=== PATIENT | male | born 1940 | race African-American/Black ===

== ENCOUNTER 2018-08-01 00:36 | Emergency (ER) | payer OTHER, MEDICARE ==
[~2018-08-01] VITALS: Ht 177.8 cm; Wt 113.0 kg
[~2018-08-01 00:36] MED LIST: ALOG25TA2 PO; AMI2 PO; ATOR40TA70 PO; COR3 PO; DAPA5TAB PO; LEVVL SQ; LISI2.5T47 PO; METF-415 PO; MONT10TA21 PO; RIVA10TA PO; SPIR25TA6 PO; TAMS0.4C31 PO
[2018-08-01] MEDS ORDERED: IPRATROPIUM BROMIDE (0.02%) 0.5MG/2.5ML NEB HHN STA (01:28)
[2018-08-01] MEDS ORDERED: ALBUTEROL (0.083%) 2.5MG/3ML NEB HHN STA (01:28)
[2018-08-01] MEDS ORDERED: ASPIRIN 81MG TABLET PO ONE (01:30)
[2018-08-01 01:49] LABS: BASOPHILS % 0.3 % (0.0-2.0); EOSINOPHILS % 0.4 % (0.0-5.0); HEMATOCRIT. 43.3 % (42.0-52.0); HEMOGLOBIN. 14.5 g/dL (14.0-18.0); LYMPHOCYTES % 23.3 % (20.0-50.0); MEAN CORPUSCULAR HEMOGLOBIN 31.4 pg (28.0-32.0); MEAN CORPUSCULAR VOLUME 93.6 fL (80.0-94.0); MEAN PLATELET VOLUME 8.2 fl (7.4-10.4); MONOCYTES % 10.7 % (2.0-8.0); NEUTROPHILS % 65.3 % (40.0-76.0); PLATELET 190 x1000/uL (130-400); RED BLOOD CELL COUNT 4.63 mill/uL (4.7-6.1); RED CELL DISTRIBUTION WIDTH 14.3 % (11.6-14.6)
[2018-08-01 01:54] LABS: CHLORIDE 103 mEq/L (98-107)
[2018-08-01] MEDS ORDERED: DEXTROSE 50% WATER 50ML SYRINGE IV ONE (03:30)
[2018-08-01 05:41] VITALS: BP 132/82
== END 2018-08-01 05:43 | disposition home or self-care (01) ==
LOC: ER 00:36 → CANBEDREQ 06:31
DX: R06.02 Shortness of breath (principal); R07.89 Other chest pain; E11.9 Type 2 diabetes mellitus without complications; E78.00 Pure hypercholesterolemia, unspecified; I10 Essential (primary) hypertension; Z87.891 Personal history of nicotine dependence; Z98.890 Other specified postprocedural states; Z79.899 Other long term (current) drug therapy; Z79.4 Long term (current) use of insulin
CPT/HCPCS: 36415; 71045; 83880; 84484; 93005; 94640; 99284; J7611

== ENCOUNTER 2018-08-23 19:43 | Emergency (ER) | payer OTHER, MEDICARE ==
[~2018-08-23] VITALS: Ht 177.8 cm; Wt 119.0 kg
[2018-08-23] MEDS ORDERED: METHYLPREDNISOLONE SOD SUCC 125 MG/2 ML VIAL IV STA (22:38)
[2018-08-23] MEDS ORDERED: IPRATROPIUM BROMIDE (0.02%) 0.5MG/2.5ML NEB HHN STA (22:38)
[2018-08-23] MEDS ORDERED: ALBUTEROL (0.083%) 2.5MG/3ML NEB HHN STA (22:38)
[2018-08-23] MEDS ORDERED: AZITHROMYCIN 500 MG TABLET PO ONE (22:45)
[2018-08-23 23:01] LABS: BG BASE EXCESS -3.1 mmol/L (-2.0-2.0); BG DEOXYHEMOGLOBIN 8.3 % (0.0-5.0); BG FRACTION INSPIRED OXYGEN 28; BG HCO3 ACT 22.2 mmol/L (22.0-26.0); BG METHEMOGLOBIN 0.2 % (0.0-1.5); BG OXYGEN SATURATION 91.6 % (92.0-98.5); BG OXYHEMOGLOBIN 90.5 % (94.0-97.0); BG PCO2 40.6 mmHg (35.0-45.0); BG PH 7.356 (7.350-7.450); BG PO2 68.7 mmHg (75.0-100.0); BG SAMPLE SITE RIGHT RADIAL; BG TOTAL HEMOGLOBIN 15.1 g/dL (12.0-18.0); BG VENT MODE NASAL CANNULA
[2018-08-23 23:10] LABS: BASOPHILS % 0.3 % (0.0-2.0); EOSINOPHILS % 0.6 % (0.0-5.0); HEMATOCRIT. 44.5 % (42.0-52.0); HEMOGLOBIN. 14.7 g/dL (14.0-18.0); LYMPHOCYTES % 23.7 % (20.0-50.0); MEAN CORPUSCULAR HEMOGLOBIN 31.8 pg (28.0-32.0); MEAN CORPUSCULAR VOLUME 96.3 fL (80.0-94.0); MEAN PLATELET VOLUME 8.8 fl (7.4-10.4); MONOCYTES % 9.9 % (2.0-8.0); NEUTROPHILS % 65.5 % (40.0-76.0); PLATELET 155 x1000/uL (130-400); RED BLOOD CELL COUNT 4.62 mill/uL (4.7-6.1); RED CELL DISTRIBUTION WIDTH 14.6 % (11.6-14.6)
[2018-08-23 23:13] LABS: CHLORIDE 108 mEq/L (98-107)
[2018-08-23 23:16] LABS: PROTHROMBIN TIME 10.3 sec (9.1-11.1)
[2018-08-24] MEDS ORDERED: FUROSEMIDE 40MG/4ML VIAL IVP ONE (02:15)
[2018-08-24] MEDS ORDERED: CEFTRIAXONE 1 G PREMIX 50 ML IV ONE (02:15)
[2018-08-24 05:16] VITALS: BP 138/81
== END 2018-08-24 05:15 | disposition short-term general hospital (02) ==
LOC: ER 19:43 → CANBEDREQ 08-24 07:03
DX: I11.0 Hypertensive heart disease with heart failure (principal); I50.9 Heart failure, unspecified; E78.00 Pure hypercholesterolemia, unspecified; E11.9 Type 2 diabetes mellitus without complications; Z87.891 Personal history of nicotine dependence; Z79.899 Other long term (current) drug therapy; Z79.4 Long term (current) use of insulin
CPT/HCPCS: 36415; 36600; 71045; 80053; 82375; 82805; 83880; 84484; 85025; 85610; 87040; 87804; 93005; 96365; 96375; 99285; J0696; J1940; J2930

== ENCOUNTER 2020-08-07 10:32 | Inpatient (IN) | payer BC, MEDICARE, OTHER ==
[~2020-08-07] VITALS: Ht 175.3 cm; Wt 109.8 kg
[2020-08-07] MEDS ORDERED: FUROSEMIDE 40MG/4ML VIAL IV ONE (11:15)
[2020-08-07 11:43] LABS: BASOPHILS % 0.8 % (0.0-2.0); EOSINOPHILS % 0.7 % (0.0-5.0); HEMATOCRIT. 37.4 % (42.0-52.0); HEMOGLOBIN. 11.4 g/dL (14.0-18.0); LYMPHOCYTES % 11.2 % (20.0-50.0); MEAN CORPUSCULAR HEMOGLOBIN 23.7 pg (28.0-32.0); MEAN CORPUSCULAR VOLUME 77.7 fL (80.0-94.0); MEAN PLATELET VOLUME 7.3 fl (7.4-10.4); MONOCYTES % 14.5 % (2.0-8.0); NEUTROPHILS % 72.8 % (40.0-76.0); PLATELET 200 x1000/uL (130-400); RED BLOOD CELL COUNT 4.81 mill/uL (4.7-6.1); RED CELL DISTRIBUTION WIDTH 19.2 % (11.6-14.6)
[2020-08-07 11:47] LABS: CHLORIDE 102 mEq/L (98-107)
[2020-08-07 11:50] LABS: INR 1.2; PROTHROMBIN TIME 12.5 sec (9.6-11.0)
[2020-08-07] MEDS ORDERED: CLONIDINE 0.1MG TABLET PO PRN (13:45)
[2020-08-07] MEDS: POTASSIUM CHLORIDE 20MEQ TABLET SR PO SCH (13:45)
[2020-08-07] MEDS ORDERED: MAGNESIUM/ALUMINUM HYDROXIDE/SIMETHICONE 30ML UDC PO PRN (13:45)
[2020-08-07] MEDS ORDERED: HYDROCODONE/ACETAMINOPHEN 5/325MG TABLET PO PRN (13:45)
[2020-08-07] MEDS: LISINOPRIL 2.5MG TABLET PO SCH (13:45)
[2020-08-07] MEDS ORDERED: DOCUSATE SODIUM 100MG CAPSULE PO PRN (13:45)
[2020-08-07] MEDS ORDERED: ACETAMINOPHEN 325MG TABLET PO PRN (13:45)
[2020-08-07] MEDS: AMIODARONE HCL 200 MG TABLET PO SCH (13:45)
[2020-08-07] MEDS: SPIRONOLACTONE 25MG TABLET PO SCH (14:00)
[2020-08-07] MEDS: CARVEDILOL 3.125 MG TABLET PO SCH ×2 (15:16→21:00)
[2020-08-07] MEDS: TAMSULOSIN HCL 0.4MG SR CAPSULE PO SCH (15:16)
[2020-08-07] MEDS: BLOOD SUGAR DIAGNOSTIC STRIP TEST SCH ×2 (16:37→21:18)
[2020-08-07] MEDS: MONTELUKAST SODIUM 10MG TABLET PO SCH (16:50)
[2020-08-07] MEDS: FUROSEMIDE 40MG/4ML VIAL IV SCH (16:50)
[2020-08-07] MEDS ORDERED: RIVAROXABAN 15 MG TABLET PO SCH (17:00)
[2020-08-07] MEDS: INSULIN LISPRO 100 UNITS/ML SUBCUT SCH ×2 (18:49→21:00)
[2020-08-07] MEDS ORDERED: INSULIN GLARGINE UD 100 UNITS/ML SYR SUBCUT SCH (22:00)
[2020-08-07 22:40] VITALS: BP 107/73
[2020-08-07 22:50] VITALS: BP 107/73
[2020-08-08 04:15] VITALS: BP 118/77
[2020-08-08] MEDS: FUROSEMIDE 40MG/4ML VIAL IV SCH ×2 (06:25→17:53)
[2020-08-08] MEDS: GUAIFENESIN 200MG/10ML SUGAR FREE UDC PO PRN (06:25)
[2020-08-08] MEDS: BLOOD SUGAR DIAGNOSTIC STRIP TEST SCH ×4 (07:15→21:58)
[2020-08-08] MEDS: INSULIN LISPRO 100 UNITS/ML SUBCUT SCH ×4 (07:15→21:58)
[2020-08-08 08:00] VITALS: BP 108/66
[2020-08-08 08:24] LABS: HEMATOCRIT. 36.8 % (42.0-52.0); HEMOGLOBIN. 11.2 g/dL (14.0-18.0); MEAN CORPUSCULAR HEMOGLOBIN 23.7 pg (28.0-32.0); MEAN PLATELET VOLUME 7.5 fl (7.4-10.4); PLATELET 191 x1000/uL (130-400); RED BLOOD CELL COUNT 4.71 mill/uL (4.7-6.1); RED CELL DISTRIBUTION WIDTH 19.1 % (11.6-14.6)
[2020-08-08 08:30] LABS: CHLORIDE 105 mEq/L (98-107)
[2020-08-08 08:39] LABS: LDL CHOLESTEROL 45 mg/dL (5-100)
[2020-08-08 08:40] LABS: HDL CHOLESTEROL 42 mg/dL (40-59)
[2020-08-08] MEDS: LISINOPRIL 2.5MG TABLET PO SCH (09:00)
[2020-08-08] MEDS: CARVEDILOL 3.125 MG TABLET PO SCH ×2 (09:00→21:56)
[2020-08-08] MEDS: POTASSIUM CHLORIDE 20MEQ TABLET SR PO SCH (10:45)
[2020-08-08] MEDS: TAMSULOSIN HCL 0.4MG SR CAPSULE PO SCH (10:46)
[2020-08-08] MEDS: SPIRONOLACTONE 25MG TABLET PO SCH (10:46)
[2020-08-08] MEDS: AMIODARONE HCL 200 MG TABLET PO SCH (10:46)
[2020-08-08 12:00] VITALS: BP 118/65
[2020-08-08] MEDS: ASPIRIN 81MG EC TABLET PO SCH (12:40)
[2020-08-08 14:14] LABS: PLATELET ESTIMATE NORMAL
[2020-08-08 16:00] VITALS: BP 121/79
[2020-08-08] MEDS: MONTELUKAST SODIUM 10MG TABLET PO SCH (17:53)
[2020-08-08 20:00] VITALS: BP 123/69
[2020-08-08] MEDS ORDERED: ENOXAPARIN 100MG/ML SYR SUBCUT NR (21:00)
[2020-08-08] MEDS ORDERED: ENOXAPARIN 100MG/ML SYR SUBCUT SCH (21:00)
[2020-08-08] MEDS ORDERED: INSULIN GLARGINE UD 100 UNITS/ML SYR SUBCUT NR (23:30)
[2020-08-08 23:34] VITALS: BP 95/22
[2020-08-09 04:00] VITALS: BP 113/77
[2020-08-09] MEDS: INSULIN LISPRO 100 UNITS/ML SUBCUT SCH ×4 (06:51→21:19)
[2020-08-09] MEDS: BLOOD SUGAR DIAGNOSTIC STRIP TEST SCH ×4 (06:52→20:56)
[2020-08-09 07:43] LABS: BASOPHILS % 0.4 % (0.0-2.0); EOSINOPHILS % 0.5 % (0.0-5.0); HEMATOCRIT. 37.3 % (42.0-52.0); HEMOGLOBIN. 11.5 g/dL (14.0-18.0); LYMPHOCYTES % 12.5 % (20.0-50.0); MEAN CORPUSCULAR HEMOGLOBIN 23.9 pg (28.0-32.0); MEAN CORPUSCULAR VOLUME 77.6 fL (80.0-94.0); MEAN PLATELET VOLUME 7.6 fl (7.4-10.4); MONOCYTES % 14.9 % (2.0-8.0); NEUTROPHILS % 71.7 % (40.0-76.0); PLATELET 205 x1000/uL (130-400); RED BLOOD CELL COUNT 4.81 mill/uL (4.7-6.1); RED CELL DISTRIBUTION WIDTH 19.4 % (11.6-14.6)
[2020-08-09 07:56] LABS: CHLORIDE 104 mEq/L (98-107)
[2020-08-09 08:00] VITALS: BP 112/69
[2020-08-09] MEDS: POTASSIUM CHLORIDE 20MEQ TABLET SR PO SCH (11:56)
[2020-08-09] MEDS: FUROSEMIDE 40MG/4ML VIAL IV SCH ×2 (11:56→17:38)
[2020-08-09] MEDS: TAMSULOSIN HCL 0.4MG SR CAPSULE PO SCH (11:56)
[2020-08-09] MEDS: LISINOPRIL 2.5MG TABLET PO SCH (11:56)
[2020-08-09] MEDS: ASPIRIN 81MG EC TABLET PO SCH (11:57)
[2020-08-09] MEDS: CARVEDILOL 3.125 MG TABLET PO SCH ×2 (11:57→21:18)
[2020-08-09] MEDS: SPIRONOLACTONE 25MG TABLET PO SCH (11:57)
[2020-08-09 12:00] VITALS: BP 125/82
[2020-08-09] MEDS ORDERED: ENOXAPARIN 100MG/ML SYR SUBCUT NR (12:15)
[2020-08-09] MEDS: MONTELUKAST SODIUM 10MG TABLET PO SCH (17:38)
[2020-08-09 18:00] VITALS: BP 108/62
[2020-08-09 20:00] VITALS: BP 110/72
[2020-08-09 21:07] LABS: CLARITY URINE CLOUDY (CLEAR); COLOR URINE YELLOW (YELLOW); KETONES URINE TRACE (NEGATIVE); LEUKOCYTE ESTERASE URINE 2+ (NEGATIVE); NITRITE URINE NEGATIVE (NEGATIVE); OCCULT BLOOD URINE 3+ (NEGATIVE); PROTEIN URINE 2+ (NEGATIVE); SPECIFIC GRAVITY URINE 1.016 (1.005-1.030)
[2020-08-09] MEDS: METHYLPREDNISOLONE SOD SUCC 40 MG/ML VIAL IV SCH (21:32)
[2020-08-09] MEDS ORDERED: INSULIN GLARGINE UD 100 UNITS/ML SYR SUBCUT SCH (22:00)
[2020-08-10] VITALS: BP 100/59
[2020-08-10 04:00] VITALS: BP 109/71
[2020-08-10] MEDS: IPRATROPIUM/ALBUTEROL 0.5-3(2.5)MG/3ML NEB HHN SCH ×3 (04:01→15:22)
[2020-08-10] MEDS: BLOOD SUGAR DIAGNOSTIC STRIP TEST SCH ×5 (06:24→21:01)
[2020-08-10] MEDS: INSULIN LISPRO 100 UNITS/ML SUBCUT SCH ×5 (06:28→21:01)
[2020-08-10] MEDS: METHYLPREDNISOLONE SOD SUCC 40 MG/ML VIAL IV SCH ×3 (06:29→22:00)
[2020-08-10 06:50] LABS: HEMATOCRIT. 38.1 % (42.0-52.0); HEMOGLOBIN. 11.9 g/dL (14.0-18.0); MEAN CORPUSCULAR HEMOGLOBIN 24.1 pg (28.0-32.0); MEAN CORPUSCULAR VOLUME 77.4 fL (80.0-94.0); MEAN PLATELET VOLUME 7.7 fl (7.4-10.4); PLATELET 211 x1000/uL (130-400); RED BLOOD CELL COUNT 4.92 mill/uL (4.7-6.1); RED CELL DISTRIBUTION WIDTH 19.5 % (11.6-14.6)
[2020-08-10 06:57] LABS: CHLORIDE 100 mEq/L (98-107)
[2020-08-10] MEDS: ENOXAPARIN 60MG/0.6ML SYR SUBCUT SCH ×2 (08:46→21:00)
[2020-08-10] MEDS: FUROSEMIDE 40MG/4ML VIAL IV SCH ×3 (08:46→16:56)
[2020-08-10] MEDS: POTASSIUM CHLORIDE 20MEQ TABLET SR PO SCH (08:51)
[2020-08-10] MEDS: ASPIRIN 81MG EC TABLET PO SCH (08:52)
[2020-08-10] MEDS: SPIRONOLACTONE 25MG TABLET PO SCH (09:00)
[2020-08-10] MEDS: TAMSULOSIN HCL 0.4MG SR CAPSULE PO SCH (09:00)
[2020-08-10] MEDS: LISINOPRIL 2.5MG TABLET PO SCH (09:00)
[2020-08-10] MEDS: CARVEDILOL 3.125 MG TABLET PO SCH ×2 (09:03→20:55)
[2020-08-10 11:02] LABS: BG BASE EXCESS 0.9 mmol/L (-2.0-2.0); BG CARBOXYHEMOGLOBIN 1.5 % (0.5-1.5); BG DEOXYHEMOGLOBIN 6.5 % (0.0-5.0); BG HCO3 ACT 27.8 mmol/L (22.0-26.0); BG METHEMOGLOBIN 0.2 % (0.0-1.5); BG OXYGEN SATURATION 93.4 % (92.0-98.5); BG OXYHEMOGLOBIN 91.8 % (94.0-97.0); BG PCO2 54.4 mmHg (35.0-45.0); BG PH 7.327 (7.350-7.450); BG PO2 77.5 mmHg (75.0-100.0); BG SAMPLE SITE RIGHT RADIAL; BG TOTAL HEMOGLOBIN 12.8 g/dL (12.0-18.0); BG VENT MODE MASK - NRB
[2020-08-10 12:00] VITALS: BP 110/72
[2020-08-10] MEDS: GUAIFENESIN 200MG/10ML SUGAR FREE UDC PO PRN (13:43)
[2020-08-10 14:20] LABS: PLATELET ESTIMATE NORMAL
[2020-08-10] MEDS: MONTELUKAST SODIUM 10MG TABLET PO SCH (16:24)
[2020-08-10] MEDS ORDERED: METOLAZONE 5MG TABLET PO NR (16:30)
[2020-08-10 20:00] VITALS: BP 104/69
[2020-08-10] MEDS ORDERED: INSULIN GLARGINE UD 100 UNITS/ML SYR SUBCUT SCH (22:00)
[2020-08-11] VITALS: BP 126/87
[2020-08-11 04:00] VITALS: BP 106/59
[2020-08-11] MEDS: IPRATROPIUM/ALBUTEROL 0.5-3(2.5)MG/3ML NEB HHN SCH ×4 (04:13→12:00)
[2020-08-11] MEDS: METHYLPREDNISOLONE SOD SUCC 40 MG/ML VIAL IV SCH ×2 (05:37→18:38)
[2020-08-11] MEDS: BLOOD SUGAR DIAGNOSTIC STRIP TEST SCH ×4 (06:19→21:00)
[2020-08-11] MEDS: INSULIN LISPRO 100 UNITS/ML SUBCUT SCH ×4 (06:19→22:13)
[2020-08-11 08:00] VITALS: BP 122/57
[2020-08-11 09:11] LABS: HEMATOCRIT. 37.4 % (42.0-52.0); HEMOGLOBIN. 11.4 g/dL (14.0-18.0); MEAN CORPUSCULAR HEMOGLOBIN 23.8 pg (28.0-32.0); MEAN PLATELET VOLUME 7.9 fl (7.4-10.4); PLATELET 225 x1000/uL (130-400); RED BLOOD CELL COUNT 4.79 mill/uL (4.7-6.1)
[2020-08-11 09:12] LABS: CHLORIDE 99 mEq/L (98-107)
[2020-08-11] MEDS: ASPIRIN 81MG EC TABLET PO SCH (09:58)
[2020-08-11] MEDS: TAMSULOSIN HCL 0.4MG SR CAPSULE PO SCH (09:58)
[2020-08-11] MEDS: FUROSEMIDE 40MG/4ML VIAL IV SCH ×2 (09:59→13:00)
[2020-08-11] MEDS: POTASSIUM CHLORIDE 20MEQ TABLET SR PO SCH (09:59)
[2020-08-11] MEDS: CARVEDILOL 3.125 MG TABLET PO SCH ×2 (09:59→21:00)
[2020-08-11] MEDS: ENOXAPARIN 60MG/0.6ML SYR SUBCUT SCH ×2 (09:59→22:12)
[2020-08-11] MEDS: SPIRONOLACTONE 25MG TABLET PO SCH (10:01)
[2020-08-11] MEDS: FUROSEMIDE 100MG/10ML VIAL IV SCH (18:39)
[2020-08-11] MEDS: MONTELUKAST SODIUM 10MG TABLET PO SCH (18:40)
[2020-08-11 20:00] VITALS: BP 103/77
[2020-08-11 21:45] LABS: PLATELET ESTIMATE NORMAL
[2020-08-11] MEDS ORDERED: IOHEXOL-350 100 ML BOTTLE ONE (21:55)
[2020-08-11] MEDS: INSULIN GLARGINE UD 100 UNITS/ML SYR SUBCUT SCH (22:42)
[2020-08-12] VITALS (14 sets, daily range): BP systolic 89–119; BP diastolic 59–82
[2020-08-12] MEDS: FUROSEMIDE 100MG/10ML VIAL IV SCH ×3 (01:30→22:37)
[2020-08-12] MEDS: METHYLPREDNISOLONE SOD SUCC 40 MG/ML VIAL IV SCH ×2 (05:16→18:15)
[2020-08-12] MEDS: BLOOD SUGAR DIAGNOSTIC STRIP TEST SCH ×4 (07:30→21:14)
[2020-08-12] MEDS: INSULIN LISPRO 100 UNITS/ML SUBCUT SCH ×4 (08:00→22:35)
[2020-08-12] MEDS: IPRATROPIUM/ALBUTEROL 0.5-3(2.5)MG/3ML NEB HHN SCH ×2 (08:18→20:42)
[2020-08-12 08:44] LABS: HEMATOCRIT. 36.5 % (42.0-52.0); HEMOGLOBIN. 11.2 g/dL (14.0-18.0); MEAN CORPUSCULAR HEMOGLOBIN 23.8 pg (28.0-32.0); MEAN CORPUSCULAR VOLUME 77.3 fL (80.0-94.0); MEAN PLATELET VOLUME 7.8 fl (7.4-10.4); PLATELET 218 x1000/uL (130-400); RED BLOOD CELL COUNT 4.72 mill/uL (4.7-6.1); RED CELL DISTRIBUTION WIDTH 19.5 % (11.6-14.6)
[2020-08-12] MEDS: CARVEDILOL 3.125 MG TABLET PO SCH ×2 (09:18→21:13)
[2020-08-12] MEDS: TAMSULOSIN HCL 0.4MG SR CAPSULE PO SCH (09:18)
[2020-08-12] MEDS: POTASSIUM CHLORIDE 20MEQ TABLET SR PO SCH (09:18)
[2020-08-12] MEDS: ENOXAPARIN 60MG/0.6ML SYR SUBCUT SCH ×2 (09:18→21:14)
[2020-08-12] MEDS: ASPIRIN 81MG EC TABLET PO SCH (09:18)
[2020-08-12 09:29] LABS: CHLORIDE 97 mEq/L (98-107)
[2020-08-12] MEDS: MONTELUKAST SODIUM 10MG TABLET PO SCH (18:36)
[2020-08-12] MEDS: INSULIN GLARGINE UD 100 UNITS/ML SYR SUBCUT SCH (22:35)
[2020-08-12 22:54] LABS: PLATELET ESTIMATE NORMAL
[2020-08-13] VITALS (8 sets, daily range): BP systolic 105–113; BP diastolic 66–80
[2020-08-13] MEDS: GUAIFENESIN 200MG/10ML SUGAR FREE UDC PO PRN (03:24)
[2020-08-13] MEDS: FUROSEMIDE 100MG/10ML VIAL IV SCH ×3 (05:13→22:51)
[2020-08-13] MEDS: METHYLPREDNISOLONE SOD SUCC 40 MG/ML VIAL IV SCH (05:14)
[2020-08-13 07:14] LABS: HEMATOCRIT. 37.2 % (42.0-52.0); HEMOGLOBIN. 11.4 g/dL (14.0-18.0); MEAN CORPUSCULAR HEMOGLOBIN 23.7 pg (28.0-32.0); MEAN CORPUSCULAR VOLUME 77.2 fL (80.0-94.0); PLATELET 189 x1000/uL (130-400); RED BLOOD CELL COUNT 4.82 mill/uL (4.7-6.1); RED CELL DISTRIBUTION WIDTH 19.6 % (11.6-14.6)
[2020-08-13 07:22] LABS: CHLORIDE 97 mEq/L (98-107)
[2020-08-13] MEDS: BLOOD SUGAR DIAGNOSTIC STRIP TEST SCH ×4 (07:30→21:00)
[2020-08-13] MEDS: LORAZEPAM 2MG/ML CPJ IV PRN (08:11)
[2020-08-13] MEDS: INSULIN LISPRO 100 UNITS/ML SUBCUT SCH ×4 (08:54→21:00)
[2020-08-13] MEDS: TAMSULOSIN HCL 0.4MG SR CAPSULE PO SCH (09:46)
[2020-08-13] MEDS: ASPIRIN 81MG EC TABLET PO SCH (09:46)
[2020-08-13] MEDS: POTASSIUM CHLORIDE 20MEQ TABLET SR PO SCH (09:46)
[2020-08-13] MEDS: ENOXAPARIN 60MG/0.6ML SYR SUBCUT SCH ×2 (09:46→22:51)
[2020-08-13] MEDS: CARVEDILOL 3.125 MG TABLET PO SCH ×2 (09:50→21:00)
[2020-08-13] MEDS: IPRATROPIUM/ALBUTEROL 0.5-3(2.5)MG/3ML NEB HHN SCH ×2 (10:37→16:20)
[2020-08-13 12:00] LABS: PLATELET ESTIMATE NORMAL
[2020-08-13] MEDS ORDERED: METOLAZONE 2.5MG TABLET PO NR (13:15)
[2020-08-13] MEDS: SPIRONOLACTONE 25MG TABLET PO SCH (13:24)
[2020-08-13 17:08] LABS: BG BASE EXCESS 12.8 mmol/L (-2.0-2.0); BG CARBOXYHEMOGLOBIN 0.9 % (0.5-1.5); BG DEOXYHEMOGLOBIN 6.4 % (0.0-5.0); BG FRACTION INSPIRED OXYGEN 99.9; BG HCO3 ACT 41.3 mmol/L (22.0-26.0); BG METHEMOGLOBIN 0.3 % (0.0-1.5); BG OXYGEN SATURATION 93.5 % (92.0-98.5); BG OXYHEMOGLOBIN 92.4 % (94.0-97.0); BG PCO2 76.1 mmHg (35.0-45.0); BG PH 7.352 (7.350-7.450); BG PO2 73.3 mmHg (75.0-100.0); BG SAMPLE SITE RIGHT RADIAL; BG TOTAL HEMOGLOBIN 11.7 g/dL (12.0-18.0); BG VENT MODE MASK - NRB
[2020-08-13] MEDS: INSULIN GLARGINE UD 100 UNITS/ML SYR SUBCUT SCH (22:52)
[2020-08-14] VITALS (7 sets, daily range): BP systolic 102–121; BP diastolic 49–70
[2020-08-14] MEDS: LORAZEPAM 2MG/ML CPJ IV PRN ×4 (01:32→21:33)
[2020-08-14] MEDS: FUROSEMIDE 100MG/10ML VIAL IV SCH ×3 (06:10→21:46)
[2020-08-14] MEDS: BLOOD SUGAR DIAGNOSTIC STRIP TEST SCH ×4 (07:30→20:51)
[2020-08-14] MEDS: INSULIN LISPRO 100 UNITS/ML SUBCUT SCH ×4 (08:00→20:54)
[2020-08-14] MEDS: DEXTROSE 50% WATER 50ML SYRINGE IV PRN ×2 (08:19→17:44)
[2020-08-14] MEDS: IPRATROPIUM/ALBUTEROL 0.5-3(2.5)MG/3ML NEB HHN SCH ×3 (08:53→22:31)
[2020-08-14] MEDS: ASPIRIN 81MG EC TABLET PO SCH (09:17)
[2020-08-14] MEDS: SPIRONOLACTONE 25MG TABLET PO SCH (09:17)
[2020-08-14] MEDS: TAMSULOSIN HCL 0.4MG SR CAPSULE PO SCH (09:18)
[2020-08-14] MEDS: CARVEDILOL 3.125 MG TABLET PO SCH ×2 (09:19→20:51)
[2020-08-14] MEDS: ENOXAPARIN 60MG/0.6ML SYR SUBCUT SCH ×2 (09:20→20:49)
[2020-08-14] MEDS ORDERED: ACETAZOLAMIDE 250MG TABLET PO NR (11:00)
[2020-08-14 11:39] LABS: HEMATOCRIT. 36.2 % (42.0-52.0); MEAN CORPUSCULAR HEMOGLOBIN 23.6 pg (28.0-32.0); MEAN CORPUSCULAR VOLUME 77.2 fL (80.0-94.0); MEAN PLATELET VOLUME 7.6 fl (7.4-10.4); PLATELET 183 x1000/uL (130-400); RED BLOOD CELL COUNT 4.69 mill/uL (4.7-6.1); RED CELL DISTRIBUTION WIDTH 19.3 % (11.6-14.6)
[2020-08-14 11:50] LABS: CHLORIDE 94 mEq/L (98-107)
[2020-08-14] MEDS ORDERED: KCL 20MEQ/100ML PREMIX 100 ML IV NR (12:00)
[2020-08-14] MEDS ORDERED: METOLAZONE 2.5MG TABLET PO NR (12:00)
[2020-08-14 13:00] LABS: BG BASE EXCESS 20.3 mmol/L (-2.0-2.0); BG CARBOXYHEMOGLOBIN 1.1 % (0.5-1.5); BG DEOXYHEMOGLOBIN 3.6 % (0.0-5.0); BG HCO3 ACT 49.1 mmol/L (22.0-26.0); BG METHEMOGLOBIN 0.3 % (0.0-1.5); BG OXYGEN SATURATION 96.3 % (92.0-98.5); BG PCO2 81.9 mmHg (35.0-45.0); BG PH 7.396 (7.350-7.450); BG SAMPLE SITE UAL; BG TOTAL HEMOGLOBIN 11.7 g/dL (12.0-18.0); BG VENT MODE MASK - BIPAP
[2020-08-14] MEDS: MONTELUKAST SODIUM 10MG TABLET PO SCH (16:11)
[2020-08-14 17:47] LABS: PLATELET ESTIMATE NORMAL
[2020-08-14] MEDS: INSULIN GLARGINE UD 100 UNITS/ML SYR SUBCUT SCH (22:00)
[2020-08-15] VITALS (10 sets, daily range): BP systolic 103–131; BP diastolic 54–74
[2020-08-15] MEDS: ONDANSETRON HCL 4MG/2ML INJ IV PRN (02:22)
[2020-08-15] MEDS: IPRATROPIUM/ALBUTEROL 0.5-3(2.5)MG/3ML NEB HHN SCH ×2 (02:44→21:17)
[2020-08-15] MEDS: FUROSEMIDE 100MG/10ML VIAL IV SCH (05:13)
[2020-08-15] MEDS: LORAZEPAM 2MG/ML CPJ IV PRN ×2 (06:00→20:34)
[2020-08-15 06:43] LABS: BASOPHILS % 0.1 % (0.0-2.0); EOSINOPHILS % 0.2 % (0.0-5.0); HEMATOCRIT. 35.6 % (42.0-52.0); HEMOGLOBIN. 11.1 g/dL (14.0-18.0); LYMPHOCYTES % 7.6 % (20.0-50.0); MEAN CORPUSCULAR HEMOGLOBIN 23.9 pg (28.0-32.0); MEAN CORPUSCULAR VOLUME 76.4 fL (80.0-94.0); MONOCYTES % 12.7 % (2.0-8.0); NEUTROPHILS % 79.4 % (40.0-76.0); PLATELET 171 x1000/uL (130-400); RED BLOOD CELL COUNT 4.66 mill/uL (4.7-6.1); RED CELL DISTRIBUTION WIDTH 19.2 % (11.6-14.6)
[2020-08-15 07:01] LABS: CHLORIDE 90 mEq/L (98-107)
[2020-08-15] MEDS: INSULIN LISPRO 100 UNITS/ML SUBCUT SCH ×4 (08:00→21:15)
[2020-08-15] MEDS: BLOOD SUGAR DIAGNOSTIC STRIP TEST SCH ×4 (08:13→21:12)
[2020-08-15] MEDS: CARVEDILOL 3.125 MG TABLET PO SCH ×2 (09:00→20:29)
[2020-08-15] MEDS ORDERED: POTASSIUM CHLORIDE 20MEQ/PACKET PO NR (09:00)
[2020-08-15] MEDS: ENOXAPARIN 60MG/0.6ML SYR SUBCUT SCH ×2 (09:57→20:28)
[2020-08-15] MEDS: ASPIRIN 81MG EC TABLET PO SCH (09:57)
[2020-08-15] MEDS: TAMSULOSIN HCL 0.4MG SR CAPSULE PO SCH (09:58)
[2020-08-15] MEDS: SPIRONOLACTONE 25MG TABLET PO SCH (09:59)
[2020-08-15] MEDS ORDERED: HALOPERIDOL LACTATE 5MG/ML VIAL IM PRN (11:00)
[2020-08-15] MEDS ORDERED: ACETAZOLAMIDE 250MG TABLET PO NR (12:00)
[2020-08-15 13:20] LABS: BG BASE EXCESS 23.1 mmol/L (-2.0-2.0); BG CARBOXYHEMOGLOBIN 0.8 % (0.5-1.5); BG DEOXYHEMOGLOBIN 4.3 % (0.0-5.0); BG HCO3 ACT 51.9 mmol/L (22.0-26.0); BG METHEMOGLOBIN 0.2 % (0.0-1.5); BG OXYGEN SATURATION 95.7 % (92.0-98.5); BG OXYHEMOGLOBIN 94.7 % (94.0-97.0); BG PH 7.435 (7.350-7.450); BG PO2 83.8 mmHg (75.0-100.0); BG SAMPLE SITE RIGHT RADIAL; BG TOTAL HEMOGLOBIN 12.4 g/dL (12.0-18.0); BG VENT MODE MASK - BIPAP
[2020-08-15] MEDS: MONTELUKAST SODIUM 10MG TABLET PO SCH (18:05)
[2020-08-15] MEDS: ACETAZOLAMIDE 250MG TABLET PO SCH (18:08)
[2020-08-15] MEDS: THEOPHYLLINE ANHYDROUS 80 MG/15 ML 120ML PO SCH (18:24)
[2020-08-15] MEDS: INSULIN GLARGINE UD 100 UNITS/ML SYR SUBCUT SCH (21:15)
[2020-08-16] VITALS (10 sets, daily range): BP systolic 100–125; BP diastolic 60–76
[2020-08-16] MEDS: IPRATROPIUM/ALBUTEROL 0.5-3(2.5)MG/3ML NEB HHN SCH ×4 (02:42→22:16)
[2020-08-16] MEDS: LORAZEPAM 2MG/ML CPJ IV PRN ×3 (03:35→17:54)
[2020-08-16] MEDS: THEOPHYLLINE ANHYDROUS 80 MG/15 ML 120ML PO SCH ×3 (06:00→21:03)
[2020-08-16 06:29] LABS: BASOPHILS % 0.2 % (0.0-2.0); EOSINOPHILS % 0.4 % (0.0-5.0); HEMATOCRIT. 38.3 % (42.0-52.0); HEMOGLOBIN. 11.8 g/dL (14.0-18.0); LYMPHOCYTES % 9.8 % (20.0-50.0); MEAN CORPUSCULAR HEMOGLOBIN 23.8 pg (28.0-32.0); MEAN CORPUSCULAR VOLUME 77.3 fL (80.0-94.0); MEAN PLATELET VOLUME 8.4 fl (7.4-10.4); MONOCYTES % 11.7 % (2.0-8.0); NEUTROPHILS % 77.9 % (40.0-76.0); PLATELET 169 x1000/uL (130-400); RED BLOOD CELL COUNT 4.96 mill/uL (4.7-6.1); RED CELL DISTRIBUTION WIDTH 18.4 % (11.6-14.6)
[2020-08-16 06:39] LABS: CHLORIDE 92 mEq/L (98-107)
[2020-08-16] MEDS: BLOOD SUGAR DIAGNOSTIC STRIP TEST SCH ×4 (07:30→20:53)
[2020-08-16] MEDS: INSULIN LISPRO 100 UNITS/ML SUBCUT SCH ×4 (08:00→21:04)
[2020-08-16] MEDS: ASPIRIN 81MG EC TABLET PO SCH (08:33)
[2020-08-16] MEDS: ACETAZOLAMIDE 250MG TABLET PO SCH (08:33)
[2020-08-16] MEDS: TAMSULOSIN HCL 0.4MG SR CAPSULE PO SCH (08:33)
[2020-08-16] MEDS: ENOXAPARIN 60MG/0.6ML SYR SUBCUT SCH ×2 (08:34→20:49)
[2020-08-16] MEDS: CARVEDILOL 3.125 MG TABLET PO SCH ×2 (08:34→20:58)
[2020-08-16] MEDS ORDERED: POTASSIUM CHLORIDE 20MEQ/PACKET PO SCH (09:45)
[2020-08-16 09:59] LABS: BG BASE EXCESS 12.1 mmol/L (-2.0-2.0); BG CARBOXYHEMOGLOBIN 0.9 % (0.5-1.5); BG DEOXYHEMOGLOBIN 0.4 % (0.0-5.0); BG FRACTION INSPIRED OXYGEN 100; BG HCO3 ACT 40.2 mmol/L (22.0-26.0); BG METHEMOGLOBIN 0.2 % (0.0-1.5); BG OXYGEN SATURATION 99.6 % (92.0-98.5); BG OXYHEMOGLOBIN 98.5 % (94.0-97.0); BG PH 7.371 (7.350-7.450); BG PO2 347.4 mmHg (75.0-100.0); BG SAMPLE SITE RIGHT RADIAL; BG TOTAL HEMOGLOBIN 12.4 g/dL (12.0-18.0); BG VENT MODE MASK - BIPAP
[2020-08-16] MEDS: FUROSEMIDE 40MG TABLET PO SCH (14:13)
[2020-08-16] MEDS ORDERED: TERBUTALINE SULFATE 1MG/ML VIAL SUBCUT NR (16:51)
[2020-08-16] MEDS: MONTELUKAST SODIUM 10MG TABLET PO SCH (17:54)
[2020-08-16] MEDS: ONDANSETRON HCL 4MG/2ML INJ IV PRN (20:49)
[2020-08-16] MEDS: INSULIN GLARGINE UD 100 UNITS/ML SYR SUBCUT SCH (21:04)
[2020-08-17] VITALS (12 sets, daily range): BP systolic 107–149; BP diastolic 50–108
[2020-08-17] MEDS: LORAZEPAM 2MG/ML CPJ IV PRN ×3 (01:03→19:58)
[2020-08-17] MEDS: IPRATROPIUM/ALBUTEROL 0.5-3(2.5)MG/3ML NEB HHN SCH ×5 (01:34→20:40)
[2020-08-17] MEDS: THEOPHYLLINE ANHYDROUS 80 MG/15 ML 120ML PO SCH ×3 (05:10→22:00)
[2020-08-17] MEDS: BLOOD SUGAR DIAGNOSTIC STRIP TEST SCH ×4 (07:30→20:20)
[2020-08-17] MEDS: INSULIN LISPRO 100 UNITS/ML SUBCUT SCH ×4 (08:00→20:25)
[2020-08-17] MEDS: ASPIRIN 81MG EC TABLET PO SCH (08:31)
[2020-08-17] MEDS: TAMSULOSIN HCL 0.4MG SR CAPSULE PO SCH (08:35)
[2020-08-17] MEDS: CARVEDILOL 3.125 MG TABLET PO SCH ×2 (08:35→20:15)
[2020-08-17] MEDS: ENOXAPARIN 60MG/0.6ML SYR SUBCUT SCH ×2 (08:36→20:23)
[2020-08-17] MEDS: FUROSEMIDE 40MG TABLET PO SCH (09:07)
[2020-08-17 12:43] LABS: BG BASE EXCESS 10.4 mmol/L (-2.0-2.0); BG CARBOXYHEMOGLOBIN 1.1 % (0.5-1.5); BG DEOXYHEMOGLOBIN 14.2 % (0.0-5.0); BG FRACTION INSPIRED OXYGEN 36; BG METHEMOGLOBIN 0.4 % (0.0-1.5); BG OXYGEN SATURATION 85.6 % (92.0-98.5); BG OXYHEMOGLOBIN 84.3 % (94.0-97.0); BG SAMPLE SITE RIGHT BRACHIAL; BG TOTAL HEMOGLOBIN 12.7 g/dL (12.0-18.0); BG VENT MODE NASAL CANNULA
[2020-08-17] MEDS ORDERED: PIPERACILLIN/TAZOBACTAM 2.25 G in DEXTROSE 5% WATER 50 ML IV SCH (14:00)
[2020-08-17] MEDS: PIPERACILLIN/TAZOBACTAM 3.375 G in DEXT 5% WATER 100 ML IV SCH ×2 (14:34→20:40)
[2020-08-17] MEDS: METHYLPREDNISOLONE SOD SUCC 125 MG/2 ML VIAL IV SCH ×3 (14:34→23:26)
[2020-08-17] MEDS: MONTELUKAST SODIUM 10MG TABLET PO SCH (17:00)
[2020-08-17 17:26] LABS: CHLORIDE 95 mEq/L (98-107)
[2020-08-17 17:34] LABS: HEMATOCRIT. 38.8 % (42.0-52.0); HEMOGLOBIN. 11.8 g/dL (14.0-18.0); MEAN CORPUSCULAR HEMOGLOBIN 23.4 pg (28.0-32.0); MEAN CORPUSCULAR VOLUME 76.8 fL (80.0-94.0); MEAN PLATELET VOLUME 8.5 fl (7.4-10.4); PLATELET 199 x1000/uL (130-400); RED BLOOD CELL COUNT 5.05 mill/uL (4.7-6.1); RED CELL DISTRIBUTION WIDTH 18.5 % (11.6-14.6)
[2020-08-17 18:30] LABS: PLATELET ESTIMATE NORMAL
[2020-08-17] MEDS: INSULIN GLARGINE UD 100 UNITS/ML SYR SUBCUT SCH (22:00)
[2020-08-18] VITALS (12 sets, daily range): BP systolic 105–132; BP diastolic 51–93
[2020-08-18] MEDS: IPRATROPIUM/ALBUTEROL 0.5-3(2.5)MG/3ML NEB HHN SCH ×4 (00:35→21:24)
[2020-08-18] MEDS: PIPERACILLIN/TAZOBACTAM 3.375 G in DEXT 5% WATER 100 ML IV SCH ×4 (01:12→21:24)
[2020-08-18] MEDS: LORAZEPAM 2MG/ML CPJ IV PRN ×2 (04:32→17:55)
[2020-08-18] MEDS: METHYLPREDNISOLONE SOD SUCC 125 MG/2 ML VIAL IV SCH ×3 (05:15→17:41)
[2020-08-18] MEDS: THEOPHYLLINE ANHYDROUS 80 MG/15 ML 120ML PO SCH ×3 (05:16→21:43)
[2020-08-18] MEDS: BLOOD SUGAR DIAGNOSTIC STRIP TEST SCH ×4 (07:51→21:35)
[2020-08-18] MEDS: ASPIRIN 81MG EC TABLET PO SCH (08:01)
[2020-08-18] MEDS: INSULIN LISPRO 100 UNITS/ML SUBCUT SCH ×4 (08:01→21:36)
[2020-08-18] MEDS: ENOXAPARIN 60MG/0.6ML SYR SUBCUT SCH ×2 (08:01→21:34)
[2020-08-18] MEDS: TAMSULOSIN HCL 0.4MG SR CAPSULE PO SCH (08:02)
[2020-08-18] MEDS: CARVEDILOL 3.125 MG TABLET PO SCH ×2 (08:05→21:33)
[2020-08-18] MEDS: FUROSEMIDE 40MG TABLET PO SCH (08:14)
[2020-08-18] MEDS ORDERED: KCL 20MEQ/100ML PREMIX 100 ML IV NR (16:00)
[2020-08-18 16:21] LABS: BG BASE EXCESS 11.6 mmol/L (-2.0-2.0); BG CARBOXYHEMOGLOBIN 0.8 % (0.5-1.5); BG DEOXYHEMOGLOBIN 1.1 % (0.0-5.0); BG FRACTION INSPIRED OXYGEN 60; BG METHEMOGLOBIN 0.4 % (0.0-1.5); BG OXYGEN SATURATION 98.9 % (92.0-98.5); BG OXYHEMOGLOBIN 97.7 % (94.0-97.0); BG PCO2 57.5 mmHg (35.0-45.0); BG PH 7.438 (7.350-7.450); BG PO2 138.1 mmHg (75.0-100.0); BG SAMPLE SITE LEFT RADIAL; BG TOTAL HEMOGLOBIN 12.8 g/dL (12.0-18.0); BG TOTAL RESPIRATORY RATE 32 b/min; BG VENT MODE MASK - BIPAP
[2020-08-18] MEDS: MONTELUKAST SODIUM 10MG TABLET PO SCH (17:41)
[2020-08-18] MEDS: INSULIN GLARGINE UD 100 UNITS/ML SYR SUBCUT SCH (21:35)
[2020-08-19] VITALS (12 sets, daily range): BP systolic 98–129; BP diastolic 59–81
[2020-08-19] MEDS: LORAZEPAM 2MG/ML CPJ IV PRN ×2 (01:38→23:08)
[2020-08-19] MEDS: PIPERACILLIN/TAZOBACTAM 3.375 G in DEXT 5% WATER 100 ML IV SCH ×4 (01:45→21:16)
[2020-08-19] MEDS: BLOOD SUGAR DIAGNOSTIC STRIP TEST SCH ×4 (05:49→21:17)
[2020-08-19] MEDS: METHYLPREDNISOLONE SOD SUCC 125 MG/2 ML VIAL IV SCH ×5 (05:49→23:42)
[2020-08-19] MEDS: THEOPHYLLINE ANHYDROUS 80 MG/15 ML 120ML PO SCH ×3 (05:49→21:18)
[2020-08-19] MEDS: IPRATROPIUM/ALBUTEROL 0.5-3(2.5)MG/3ML NEB HHN SCH ×3 (07:43→23:15)
[2020-08-19] MEDS: INSULIN LISPRO 100 UNITS/ML SUBCUT SCH ×4 (08:15→22:10)
[2020-08-19] MEDS: ASPIRIN 81MG EC TABLET PO SCH (08:16)
[2020-08-19] MEDS: TAMSULOSIN HCL 0.4MG SR CAPSULE PO SCH (08:16)
[2020-08-19] MEDS: FUROSEMIDE 40MG TABLET PO SCH (08:16)
[2020-08-19] MEDS: CARVEDILOL 3.125 MG TABLET PO SCH ×2 (08:17→21:17)
[2020-08-19] MEDS: ENOXAPARIN 60MG/0.6ML SYR SUBCUT SCH ×2 (09:42→21:18)
[2020-08-19 10:32] LABS: BG BASE EXCESS 6.9 mmol/L (-2.0-2.0); BG CARBOXYHEMOGLOBIN 0.8 % (0.5-1.5); BG DEOXYHEMOGLOBIN 2.6 % (0.0-5.0); BG HCO3 ACT 31.6 mmol/L (22.0-26.0); BG METHEMOGLOBIN 0.3 % (0.0-1.5); BG OXYGEN SATURATION 97.4 % (92.0-98.5); BG OXYHEMOGLOBIN 96.3 % (94.0-97.0); BG PCO2 45.2 mmHg (35.0-45.0); BG PH 7.462 (7.350-7.450); BG PO2 94.8 mmHg (75.0-100.0); BG SAMPLE SITE RIGHT RADIAL; BG TOTAL HEMOGLOBIN 13.4 g/dL (12.0-18.0); BG VENT MODE MASK - BIPAP
[2020-08-19] MEDS: MONTELUKAST SODIUM 10MG TABLET PO SCH (17:48)
[2020-08-19] MEDS: INSULIN GLARGINE UD 100 UNITS/ML SYR SUBCUT SCH (22:12)
[2020-08-20] VITALS (10 sets, daily range): BP systolic 99–114; BP diastolic 56–75
[2020-08-20] MEDS: PIPERACILLIN/TAZOBACTAM 3.375 G in DEXT 5% WATER 100 ML IV SCH ×4 (02:13→19:00)
[2020-08-20] MEDS: THEOPHYLLINE ANHYDROUS 80 MG/15 ML 120ML PO SCH ×2 (05:04→15:53)
[2020-08-20] MEDS: METHYLPREDNISOLONE SOD SUCC 125 MG/2 ML VIAL IV SCH ×3 (05:04→17:28)
[2020-08-20] MEDS: IPRATROPIUM/ALBUTEROL 0.5-3(2.5)MG/3ML NEB HHN SCH ×4 (05:14→21:44)
[2020-08-20] MEDS: LORAZEPAM 2MG/ML CPJ IV PRN (06:33)
[2020-08-20] MEDS: BLOOD SUGAR DIAGNOSTIC STRIP TEST SCH ×4 (07:30→21:00)
[2020-08-20] MEDS: INSULIN LISPRO 100 UNITS/ML SUBCUT SCH ×4 (10:10→22:22)
[2020-08-20] MEDS: ENOXAPARIN 60MG/0.6ML SYR SUBCUT SCH ×2 (10:12→22:13)
[2020-08-20] MEDS: CARVEDILOL 3.125 MG TABLET PO SCH ×2 (10:13→21:00)
[2020-08-20] MEDS: TAMSULOSIN HCL 0.4MG SR CAPSULE PO SCH (10:15)
[2020-08-20] MEDS: FUROSEMIDE 40MG TABLET PO SCH (10:16)
[2020-08-20] MEDS: ASPIRIN 81MG EC TABLET PO SCH (10:17)
[2020-08-20 13:36] LABS: BG BASE EXCESS 9.5 mmol/L (-2.0-2.0); BG CARBOXYHEMOGLOBIN 0.6 % (0.5-1.5); BG DEOXYHEMOGLOBIN 6.2 % (0.0-5.0); BG FRACTION INSPIRED OXYGEN 45; BG HCO3 ACT 34.5 mmol/L (22.0-26.0); BG METHEMOGLOBIN 0.2 % (0.0-1.5); BG OXYGEN SATURATION 93.8 % (92.0-98.5); BG PCO2 48.1 mmHg (35.0-45.0); BG PH 7.473 (7.350-7.450); BG PO2 68.5 mmHg (75.0-100.0); BG SAMPLE SITE RIGHT RADIAL; BG TOTAL HEMOGLOBIN 12.8 g/dL (12.0-18.0); BG TOTAL RESPIRATORY RATE 34 b/min; BG VENT MODE MASK - BIPAP
[2020-08-20] MEDS: ACETAZOLAMIDE 250MG TABLET PO SCH ×2 (15:05→17:41)
[2020-08-20] MEDS: MONTELUKAST SODIUM 10MG TABLET PO SCH (17:28)
[2020-08-20 17:48] LABS: CHLORIDE 96 mEq/L (98-107)
[2020-08-20] MEDS ORDERED: POTASSIUM CHLORIDE INJ 40 MEQ in DEXT 5% WATER 500 ML IV NR (18:45)
[2020-08-20] MEDS ORDERED: INSULIN GLARGINE UD 100 UNITS/ML SYR SUBCUT SCH (22:00)
[2020-08-21] VITALS (10 sets, daily range): BP systolic 112–166; BP diastolic 69–82
[2020-08-21] MEDS: THEOPHYLLINE ANHYDROUS 80 MG/15 ML 120ML PO SCH ×4 (00:06→21:57)
[2020-08-21] MEDS: METHYLPREDNISOLONE SOD SUCC 125 MG/2 ML VIAL IV SCH ×5 (00:11→23:31)
[2020-08-21] MEDS: PIPERACILLIN/TAZOBACTAM 3.375 G in DEXT 5% WATER 100 ML IV SCH ×4 (01:01→21:51)
[2020-08-21] MEDS: IPRATROPIUM/ALBUTEROL 0.5-3(2.5)MG/3ML NEB HHN SCH ×4 (03:39→21:33)
[2020-08-21 07:21] LABS: HEMATOCRIT. 39.5 % (42.0-52.0); HEMOGLOBIN. 12.4 g/dL (14.0-18.0); MEAN CORPUSCULAR HEMOGLOBIN 23.6 pg (28.0-32.0); MEAN CORPUSCULAR VOLUME 75.4 fL (80.0-94.0); MEAN PLATELET VOLUME 8.4 fl (7.4-10.4); PLATELET 227 x1000/uL (130-400); RED BLOOD CELL COUNT 5.23 mill/uL (4.7-6.1); RED CELL DISTRIBUTION WIDTH 18.5 % (11.6-14.6)
[2020-08-21 07:29] LABS: CHLORIDE 95 mEq/L (98-107)
[2020-08-21] MEDS: BLOOD SUGAR DIAGNOSTIC STRIP TEST SCH ×4 (07:49→21:57)
[2020-08-21] MEDS: INSULIN LISPRO 100 UNITS/ML SUBCUT SCH ×4 (08:02→21:00)
[2020-08-21] MEDS: ASPIRIN 81MG EC TABLET PO SCH (09:42)
[2020-08-21] MEDS: TAMSULOSIN HCL 0.4MG SR CAPSULE PO SCH (09:42)
[2020-08-21] MEDS: FUROSEMIDE 40MG TABLET PO SCH (09:42)
[2020-08-21] MEDS: CARVEDILOL 3.125 MG TABLET PO SCH ×2 (09:42→22:06)
[2020-08-21] MEDS: ACETAZOLAMIDE 250MG TABLET PO SCH ×2 (09:42→17:32)
[2020-08-21] MEDS: ENOXAPARIN 60MG/0.6ML SYR SUBCUT SCH ×2 (09:43→21:57)
[2020-08-21] MEDS ORDERED: POTASSIUM CHLORIDE INJ 40 MEQ in DEXT 5% WATER 250 ML IV SCH (10:00)
[2020-08-21] MEDS ORDERED: POTASSIUM CHLORIDE 20MEQ/PACKET PO SCH (12:00)
[2020-08-21 13:42] LABS: BG BASE EXCESS 3.3 mmol/L (-2.0-2.0); BG FRACTION INSPIRED OXYGEN 32; BG HCO3 ACT 28.4 mmol/L (22.0-26.0); BG METHEMOGLOBIN 0.3 % (0.0-1.5); BG OXYGEN SATURATION 93.9 % (92.0-98.5); BG OXYHEMOGLOBIN 92.7 % (94.0-97.0); BG PCO2 44.9 mmHg (35.0-45.0); BG PH 7.419 (7.350-7.450); BG PO2 72.1 mmHg (75.0-100.0); BG SAMPLE SITE RIGHT RADIAL; BG TOTAL HEMOGLOBIN 13.3 g/dL (12.0-18.0); BG VENT MODE NASAL CANNULA
[2020-08-21] MEDS: MONTELUKAST SODIUM 10MG TABLET PO SCH (17:32)
[2020-08-21 18:42] LABS: PLATELET ESTIMATE NORMAL
[2020-08-21] MEDS: INSULIN GLARGINE UD 100 UNITS/ML SYR SUBCUT SCH (22:13)
[2020-08-22] VITALS (12 sets, daily range): BP systolic 100–146; BP diastolic 58–82
[2020-08-22] MEDS: PIPERACILLIN/TAZOBACTAM 3.375 G in DEXT 5% WATER 100 ML IV SCH ×2 (01:05→09:50)
[2020-08-22] MEDS: IPRATROPIUM/ALBUTEROL 0.5-3(2.5)MG/3ML NEB HHN SCH (04:40)
[2020-08-22] MEDS: THEOPHYLLINE ANHYDROUS 80 MG/15 ML 120ML PO SCH ×3 (05:40→22:00)
[2020-08-22] MEDS: METHYLPREDNISOLONE SOD SUCC 125 MG/2 ML VIAL IV SCH ×3 (05:40→18:15)
[2020-08-22] MEDS: BLOOD SUGAR DIAGNOSTIC STRIP TEST SCH ×4 (07:30→20:39)
[2020-08-22] MEDS: ACETAZOLAMIDE 250MG TABLET PO SCH ×2 (09:47→17:16)
[2020-08-22] MEDS: CARVEDILOL 3.125 MG TABLET PO SCH ×2 (09:48→20:38)
[2020-08-22] MEDS: ASPIRIN 81MG EC TABLET PO SCH (09:48)
[2020-08-22] MEDS: TAMSULOSIN HCL 0.4MG SR CAPSULE PO SCH (09:49)
[2020-08-22] MEDS: FUROSEMIDE 40MG TABLET PO SCH (09:49)
[2020-08-22] MEDS: ENOXAPARIN 60MG/0.6ML SYR SUBCUT SCH ×2 (09:50→20:36)
[2020-08-22] MEDS: INSULIN LISPRO 100 UNITS/ML SUBCUT SCH ×4 (10:19→20:42)
[2020-08-22 12:05] LABS: CHLORIDE 101 mEq/L (98-107)
[2020-08-22] MEDS: MONTELUKAST SODIUM 10MG TABLET PO SCH (17:14)
[2020-08-22 19:13] LABS: HEMATOCRIT. 39.3 % (42.0-52.0); MEAN CORPUSCULAR HEMOGLOBIN 23.4 pg (28.0-32.0); MEAN CORPUSCULAR VOLUME 76.4 fL (80.0-94.0); MEAN PLATELET VOLUME 8.5 fl (7.4-10.4); PLATELET 211 x1000/uL (130-400); RED BLOOD CELL COUNT 5.14 mill/uL (4.7-6.1); RED CELL DISTRIBUTION WIDTH 18.6 % (11.6-14.6)
[2020-08-22] MEDS: ONDANSETRON HCL 4MG/2ML INJ IV PRN (20:36)
[2020-08-22 20:44] LABS: PLATELET ESTIMATE NORMAL
[2020-08-22] MEDS: INSULIN GLARGINE UD 100 UNITS/ML SYR SUBCUT SCH (22:00)
[2020-08-23] VITALS (10 sets, daily range): BP systolic 98–122; BP diastolic 61–76
[2020-08-23] MEDS: IPRATROPIUM/ALBUTEROL 0.5-3(2.5)MG/3ML NEB HHN SCH ×3 (02:37→14:30)
[2020-08-23] MEDS: METHYLPREDNISOLONE SOD SUCC 125 MG/2 ML VIAL IV SCH ×4 (05:38→17:40)
[2020-08-23] MEDS: THEOPHYLLINE ANHYDROUS 80 MG/15 ML 120ML PO SCH ×2 (05:38→13:37)
[2020-08-23] MEDS: BLOOD SUGAR DIAGNOSTIC STRIP TEST SCH ×4 (06:52→20:17)
[2020-08-23 07:00] LABS: BASOPHILS % 0.2 % (0.0-2.0); HEMATOCRIT. 39.8 % (42.0-52.0); HEMOGLOBIN. 12.6 g/dL (14.0-18.0); LYMPHOCYTES % 8.1 % (20.0-50.0); MEAN CORPUSCULAR HEMOGLOBIN 23.8 pg (28.0-32.0); MEAN CORPUSCULAR VOLUME 75.5 fL (80.0-94.0); MEAN PLATELET VOLUME 8.5 fl (7.4-10.4); MONOCYTES % 6.9 % (2.0-8.0); NEUTROPHILS % 84.8 % (40.0-76.0); PLATELET 216 x1000/uL (130-400); RED BLOOD CELL COUNT 5.28 mill/uL (4.7-6.1); RED CELL DISTRIBUTION WIDTH 18.4 % (11.6-14.6)
[2020-08-23 07:38] LABS: CHLORIDE 102 mEq/L (98-107)
[2020-08-23] MEDS: ACETAZOLAMIDE 250MG TABLET PO SCH ×2 (08:30→17:42)
[2020-08-23] MEDS: ASPIRIN 81MG EC TABLET PO SCH (08:30)
[2020-08-23] MEDS: FUROSEMIDE 40MG TABLET PO SCH (08:30)
[2020-08-23] MEDS: CARVEDILOL 3.125 MG TABLET PO SCH ×2 (08:30→20:16)
[2020-08-23] MEDS: TAMSULOSIN HCL 0.4MG SR CAPSULE PO SCH (08:30)
[2020-08-23] MEDS: INSULIN LISPRO 100 UNITS/ML SUBCUT SCH ×4 (08:32→20:23)
[2020-08-23] MEDS: ENOXAPARIN 60MG/0.6ML SYR SUBCUT SCH ×2 (08:32→20:17)
[2020-08-23] MEDS ORDERED: FOLIC ACID 1MG TABLET PO SCH (09:00)
[2020-08-23] MEDS ORDERED: THIAMINE HCL 100MG TABLET PO SCH (09:00)
[2020-08-23] MEDS ORDERED: POTASSIUM CHLORIDE 20MEQ TABLET SR PO SCH (10:00)
[2020-08-23] MEDS ORDERED: LACTULOSE 20G/30ML UDC PO PRN (11:45)
[2020-08-23 12:39] LABS: BG CARBOXYHEMOGLOBIN 0.6 % (0.5-1.5); BG FRACTION INSPIRED OXYGEN 28; BG HCO3 ACT 24.6 mmol/L (22.0-26.0); BG METHEMOGLOBIN 0.2 % (0.0-1.5); BG OXYHEMOGLOBIN 96.2 % (94.0-97.0); BG PH 7.407 (7.350-7.450); BG PO2 92.8 mmHg (75.0-100.0); BG SAMPLE SITE RIGHT RADIAL; BG TOTAL HEMOGLOBIN 13.7 g/dL (12.0-18.0); BG VENT MODE NASAL CANNULA
[2020-08-23] MEDS ORDERED: POTASSIUM CHLORIDE 20MEQ/PACKET PO NR (13:15)
[2020-08-23] MEDS: MONTELUKAST SODIUM 10MG TABLET PO SCH (17:40)
[2020-08-24] MEDS ORDERED: METHYLPREDNISOLONE SOD SUCC 125 MG/2 ML VIAL IV SCH (06:00)
== END 2020-08-23 20:45 | DRG 291 ==
LOC: ER 11:46 → 5WST 13:31 → 8WST 08-10 17:07 → 5EST 08-11 11:31
PROVIDERS: ADMIT Hospitalist; ATTEND Hospitalist
DX: I11.0 Hypertensive heart disease with heart failure (principal); E43 Unspecified severe protein-calorie malnutrition; J96.01 Acute respiratory failure with hypoxia; G93.41 Metabolic encephalopathy; J96.02 Acute respiratory failure with hypercapnia; J18.9 Pneumonia, unspecified organism; J44.1 Chronic obstructive pulmonary disease with (acute) exacerbation; E87.2 Acidosis; I50.43 Acute on chronic combined systolic (congestive) and diastolic (congestive) heart failure; I42.9 Cardiomyopathy, unspecified; Z20.822 Contact with and (suspected) exposure to COVID-19; D50.9 Iron deficiency anemia, unspecified; E78.00 Pure hypercholesterolemia, unspecified; E78.5 Hyperlipidemia, unspecified; E87.6 Hypokalemia; G47.33 Obstructive sleep apnea (adult) (pediatric); E11.42 Type 2 diabetes mellitus with diabetic polyneuropathy; I08.1 Rheumatic disorders of both mitral and tricuspid valves; I25.10 Atherosclerotic heart disease of native coronary artery without angina pectoris; K59.00 Constipation, unspecified; I48.91 Unspecified atrial fibrillation; N40.0 Benign prostatic hyperplasia without lower urinary tract symptoms; R13.10 Dysphagia, unspecified; E87.5 Hyperkalemia; F10.20 Alcohol dependence, uncomplicated; R91.1 Solitary pulmonary nodule; R26.9 Unspecified abnormalities of gait and mobility; Z79.82 Long term (current) use of aspirin; Z95.810 Presence of automatic (implantable) cardiac defibrillator; Z99.81 Dependence on supplemental oxygen; Z95.5 Presence of coronary angioplasty implant and graft; Z68.35 Body mass index [BMI] 35.0-35.9, adult; Z79.899 Other long term (current) drug therapy; Z82.49 Family history of ischemic heart disease and other diseases of the circulatory system; Z87.891 Personal history of nicotine dependence
CPT/HCPCS: 36415; 36600; 71045; 71250; 71275; 80048; 80053; 80061; 81003; 82140; 82375; 82805; 82962; 83735; 83880; 84132; 84484; 85025; 87426; 92523; 93005; 93306; 93970; 94640; 94660; 97110; 97116; 97162; 97166; 97530; 99285; C1893; J1630; J1650; J1815; J1940; J2060; J2405; J2543; J2920; J2930; J3105; J3480; J7060; Q9967; U0003